=== PATIENT | male | born 2000 | race Two or more races ===

== ENCOUNTER 2023-09-22 10:13 | Emergency (ER) | payer OTHER ==
[2023-09-22 11:38] LABS: CORONAVIRUS COVID-19 NAA NEGATIVE (NEGATIVE); INFLUENZA A NAA NEGATIVE (NEGATIVE); INFLUENZA B NAA NEGATIVE (NEGATIVE); RESPIRATORY SYNCYTIAL VIR NAA NEGATIVE (NEGATIVE)
== END 2023-09-22 12:00 | disposition home or self-care (01) ==
LOC: VM.ED 10:13
DX: B34.9 Viral infection, unspecified (principal)
CPT/HCPCS: 0241U; 99284; 99283